=== PATIENT | male | born 1960 | race Caucasian/White ===

== ENCOUNTER 2018-06-06 10:04 | Outpatient (CLI) ==
[2016-05-19 14:28] VITALS: BMI 23.0
--- NOTE | 2018-06-06 10:44 | CT ---
EXAM: CT chest without contrast. HISTORY: Chronic obstructive pulmonary disease. Cough. COMPARISON: 01/16/2015. TECHNIQUE: Multiple axial images of the chest were obtained without intravenous contrast. Images we re reformatted in the sagittal and coronal planes. FINDINGS: Evaluation for lymphadenopathy is limited by lack of intravenous contrast. Densely calcif ied lymph nodes present in the mediastinum and bilateral hilar regions. Heart size is normal. No pe ricardial effusion identified. Atherosclerotic calcifications present. Left subclavian artery stent is present. Moderate emphysematous changes present, greatest in the upper lobes. New linear opacities are seen i n the right apex on axial images 12 through 23. Discrete measurable nodule is not clearly seen at th is level. There are multiple random solid and ground-glass nodules throughout the right lung with th e largest individual nodule in the right middle lobe measuring approximately 1.1 x 0.8 cm on axial im age 44 which are new. Left lung is grossly clear save for calcified granulomatous changes. No pleur al effusion or pneumothorax identified. Limited images of the upper abdomen demonstrate hepatic steatosis, left nephrolithiasis and cholelith iasis. There has been previous ACDF. No acute osseous abnormality identified. IMPRESSION: 1. New right lung nodular densities, the largest in the right middle lobe, which are most likely inf ectious/inflammatory in nature. Right apical linear opacities likely due to the same process. Follo w-up CT within 3 months recommended for reassessment. 2. Moderate to severe emphysema. 3. Evidence of prior granulomatous disease.
== END 2018-06-06 10:05 | disposition home or self-care (01) ==
LOC: RAD 10:04
PROVIDERS: ATTEND Family Medicine
DX: J44.1 Chronic obstructive pulmonary disease with (acute) exacerbation (principal); R63.4 Abnormal weight loss; R05 Cough

== ENCOUNTER 2018-06-08 17:25 | Emergency (ER) ==
[2018-06-08 17:29] VITALS: BP 177/99; TEMP 97.8; BMI 26.3
[2018-06-08] MEDS ORDERED: ALBUTEROL 0.083% NEB NEB STA (17:51)
--- NOTE | 2018-06-08 18:47 | ED.PDOC ---
General ED Provider: Dr. JOHN FENG Chief Complaint: Shortness of Air Stated Complaint: Sudden worsening of SOB. Recent dx URI and stated on antibiotics. Today his states she came home from work and he was having extremed respiratory difficulties. Brought to ER Time Seen by Physician: 17:26 Mode of Arrival: Wheelchair Information Source: Patient Exam Limitations: Clinical condition Primary Care Provider: VAHID GERARD Seen Within Last 72 Hours for Same Complaint By: Clinic Nursing and Triage Documentation Reviewed and Agree: Yes Does patient meet sepsis criteria?: No System Inflammatory Response Syndrome: Not Applicable Sepsis Protocol: For patient's 13 years and over: Temp is 96.8 and below OR 101 and greater Pulse >90 BPM Resp >20/minute Acutely Altered Mental Status Are patient's symptoms suggestive of a new infection, such as: -Pneumonia -Skin, Soft Tissue -Endocarditis -UTI -Bone, Joint Infection -Implantable Device -Acute Abdominal Infection -Wound Infection -Meningitis -Blood Stream Catheter Infection -Unknown Respiratory Complaint Exam - Shortness of Air Complaint/Exam Onset/Duration: today Symptoms Are: Still present Timing: Constant Initial Severity: Moderate Current Severity: Moderate Character: Reports: Dyspnea at rest, Dyspnea on exertion Aggravating: Reports: Movement Alleviating: Reports: None, Upright position Associated Signs and Symptoms: Reports: Wheezing, Rapid breathing, Labored breathing History of Healthcare-Acquired Pneumonia: No Pulmonary Embolism Risk Factors: Reports: None Cardiac Risk Factors: Reports: None Pseudomonas Risk Factors: Reports: None Tuberculosis Risk Factors: Reports: None Home Oxygen Use: No Recent Stress Test: No Recent Echo/LV Function: No Respiratory Distress: Moderate Stridor Present: No Tracheal Deviation: No Subcutaneous Emphysema: No Accessory Muscle Use: No Retractions: Not Present Diminished Breath Sounds: Yes Unable to Speak Full Sentences: Yes Fatigue: Yes Leg Swelling: No Lisa's Sign Present: No Grunting Respirations: No Kussmaul Respirations: No Differential Diagnoses: COPD Exacerbation Quality Indicators for AMI: EKG in 10min. Related Surgical History: Reports: None Review of Systems - Review Of Systems Constitutional: Reports: No symptoms Eyes: Reports: No symptoms Ears, Nose, Mouth, Throat: Reports: No symptoms Respiratory: Reports: Cough, Short of air, Wheezing Cardiac: Reports: No symptoms GI: Reports: No symptoms : Reports: No symptoms Musculoskeletal: Reports: No symptoms Skin: Reports: No symptoms Neurological: Reports: No symptoms Endocrine: Reports: No symptoms Hematologic/Lymphatic: Reports: No symptoms All Other Systems: Reviewed and Negative Past Medical History - Past Medical History Endocrine: Reports: DM 1 Cardiovascular: Reports: Hypertension Respiratory: Reports: COPD Hematological: Reports: None Gastrointestinal: Reports: GERD Genitourinary: Reports: Kidney stones Neuro/Psych: Reports: Migraine Musculoskeletal: Reports: None Cancer: Reports: None - Surgical History General Surgical History: Reports: Stent, Orthopedic (C SPINE 2 LEVEL FUSION) - Family History Family History: Reports: Unknown - Social History Smoking Status: Former smoker, Chews tobacco Hx Substance Use: No Alcohol Screening: None Physical Exam - Physical Exam Appearance: Ill-appearing Ill-appearing: Moderate Pain Distress: None Eyes: LEWIS, EOMI, Conjunctiva clear ENT: Ears normal, Nose normal, Oropharynx normal Respiratory: Breath sounds diminished, Wheezes Cardiovascular: RRR, Pulses normal, No rub, No murmur GI/: Soft, Nontender, No masses, Bowel sounds normal, No Organomegaly Musculoskeletal: Normal strength, ROM intact, No edema, No calf tenderness Skin: Warm, Dry, Normal color Neurological: Sensation intact, Motor intact, Reflexes intact, Cranial nerves intact, Alert, Oriented Psychiatric: Affect appropriate, Mood appropriate, Anxious Interpretation - Radiology Interpretation Radiology Results: No acute changes Exam Interpreted: Portable CXR Re-Evaluation - Re-Evaluation Time of Re-Evaluation: 19:15 Status: Improved Vital Signs Stable: Yes Appearance: NAD Lungs: Other (few wheezes) Skin: Warm and Dry Neuro: Alert and Oriented X3 CV: RRR Physician Notification - Case Discussed Physician Notified: Dr Gerard Time of Notification: 18:40 (Request transfer to [facility]/patient agrees) Critical Care Note - Critical Care Note Total Time (mins): 60 Course - Course Hematology/Chemistry: 06/08/18 18:50 Orders, Labs, Meds: Lab Review 06/08/18 06/08/18 18:41 18:50 WBC 9.37 RBC 4.89 Hgb 15.1 Hct 41.9 L MCV 85.7 MCH 30.9 MCHC 36.0 H RDW Coeff of Tiffany 13.5 Plt Count 157 Immature Gran % (Auto) 0.3 Neut % (Auto) 85.0 Lymph % (Auto) 9.8 L Amador % (Auto) 4.8 Eos % (Auto) 0.0 Baso % (Auto) 0.1 Immature Gran # (Auto) 0.0 Neut # (Auto) 8.0 H Lymph # (Auto) 0.9 Amador # (Auto) 0.5 Eos # (Auto) 0.0 Baso # (Auto) 0.0 Puncture Site Rr O2 Saturation 99.0 ABG pH 7.573 H* ABG pCO2 18.7 L ABG pO2 106.0 H ABG HCO3 17.3 L ABG Total CO2 18 L ABG Base Excess -5 L Noah Test + FiO2 % 21.0 Orders Category Date Time Status ABG DRAW REQUEST Stat CARDIO 06/08/18 18:42 Completed EKG-(ED ONLY) Stat CARDIO 06/08/18 18:42 Completed NEBULIZER TREATMENT Stat CARDIO 06/08/18 17:51 Completed ABG Stat LAB 06/08/18 18:41 Completed CBC W/ AUTO DIFF Stat LAB 06/08/18 18:50 Completed CMP [COMPREHENSIVE METABOLIC PANEL] Stat LAB 06/08/18 18:50 Received Albuterol Sulfate 0.083% Neb [Albuterol 0.083% Neb] MEDS 06/08/18 17:51 Discontinued 1 vial NEB ONCE STA CHEST, 1V AP ONLY Stat RADS 06/08/18 18:41 Taken Medications Discontinued Medications Generic Name Dose Route Start Last Admin Trade Name Freq PRN Reason Stop Dose Admin Albuterol Sulfate 1 vial 06/08/18 17:51 06/08/18 17:56 Albuterol 0.083% Neb NEB 06/08/18 17:52 1 vial ONCE STA Administration Vital Signs: Temp Pulse Resp BP Pulse Ox 06/08/18 17:26 97.8 F 81 30 H 177/99 H 97 Departure - Departure Time of Disposition: 19:00 Disposition: TSF SHORT-TRM HOSP Discharge Problem: COPD with acute exacerbation Condition: Fair Pt referred to PMD for follow-up: Yes IPMP verified?: No Allergies/Adverse Reactions: Allergies No Known Allergies Allergy (Unverified 05/19/16 14:20) Home Medications: Ambulatory Orders Albuterol Sulfate [Proair Respiclick] 90 mcg IH QID PRN 05/19/16 Fluticasone/Salmeterol 250/50 [Advair 250-50 Diskus] 1 puff IH BID 05/19/16 Hum Insulin NPH/Reg Insulin Hm [Novolin 70-30 Insulin] 20 unit SUBCUT BID Irbesartan [Avapro] 150 mg PO DAILY 05/19/16 Oxycodone-Acetaminophen 10-325 [Percocet 10-325] 1 tab PO TID PRN 05/19/16 Ranitidine HCl [Zantac] 150 mg PO BIDAC 05/19/16 Cefdinir 600 mg PO DAILY 06/08/18 Methylprednisolone [Medrol Dosepak] 4 mg PO DIRECTED 06/08/18 Pregabalin [Lyrica] 150 mg PO BID 06/08/18 Tizanidine HCl [Zanaflex] 4 mg PO BID 06/08/18 Disposition Discussed With: Patient, Family, Other (Dr Gerard consulted and agrees to admisson -recommended transfer to [facility] -Discussed with patient and family who agree) Additional Information: Dr Gerard would like transferred to [facility] for admission inorder to obtain pulmonary consult
--- NOTE | 2018-06-09 07:21 | DI ---
EXAM: Chest one view, frontal view only. HISTORY: Shortness of breath. COMPARISON: 06/06/2018. FINDINGS: The heart size is normal. Stent present in the region of the left subclavian artery. The re is no pulmonary vascular congestion. Reticulonodular opacities at the lung bases noted. Otherwis e, the lungs are clear save for calcified granulomatous changes. No pleural effusion or pneumothorax is seen. No acute osseous abnormality identified. ACDF changes noted. Since the prior study, there has been no significant interval change. IMPRESSION: Stable reticulonodular opacities likely due to airways infection/inflammation.
== END 2018-06-08 20:02 | disposition short-term general hospital (02) ==
LOC: ED 17:25
DX: J44.1 Chronic obstructive pulmonary disease with (acute) exacerbation (principal); R06.02 Shortness of breath; I10 Essential (primary) hypertension; E10.9 Type 1 diabetes mellitus without complications; Z72.0 Tobacco use; Z79.899 Other long term (current) drug therapy
CPT/HCPCS: 36415; 80053; 82803; 85025; 93005; 93010; 94640; 99285

== ENCOUNTER 2018-09-11 08:56 | Outpatient (CLI) ==
--- NOTE | 2018-09-11 10:22 | CT ---
EXAM: CT of the chest without contrast History: Follow-up pneumonia Comparison: Chest radiograph 06/08/2018, chest CT 06/06/2018 Technique: Multiplanar CT images through the thorax were obtained without the administration of IV c ontrast Findings: Heart size is normal. Coronary calcifications. Calcified granulomas are again seen within the thorax. No thoracic aortic aneurysm. There is a stent again seen within the left subclavian ar fer. No thoracic lymphadenopathy. Emphysema again noted. Stable areas of scarring. The previousl y described right lung infiltrates have resolved. There are no suspicious lung masses or lung nodule s. No developing lung infiltrates. No pleural fluid and no pneumothorax. Within the visualized upper abdomen, no acute findings. No acute osseous abnormalities. Partially vi sualized postsurgical changes of the cervical spine. Impression: 1. No acute intrathoracic process. 2. Resolved right lung infiltrates. No developing lung opacities or nodules. No additional follow- up is needed. 3. Emphysema. 4. Old granulomatous disease. 5. Coronary artery disease
== END 2018-09-11 08:57 | disposition home or self-care (01) ==
LOC: RAD 08:56
PROVIDERS: ATTEND Nurse Practitioner Family
DX: R91.1 Solitary pulmonary nodule (principal)